=== PATIENT | male | born 1995 | race Caucasian/White ===

== ENCOUNTER 2022-02-27 10:52 | Outpatient (CLI) | payer OTHER | END 2022-02-27 10:53 | disposition home or self-care (01) | LOC: BICRAD 10:52 | PROVIDERS: ATTEND Nurse Practitioner Family | DX: L03.115 Cellulitis of right lower limb (principal); M79.89 Other specified soft tissue disorders; V89.2XXS Person injured in unspecified motor-vehicle accident, traffic, sequela ==